=== PATIENT | female | born 1940 | race Caucasian/White ===

== ENCOUNTER 2017-07-05 10:33 | Outpatient (CLI) | payer MEDICARE, OTHER ==
--- NOTE | 2017-07-05 12:37 | XRAY Report ---
TWO VIEW CHEST: 07/05/2017 COMPARISON: Chest radiographs 10/11/2008. INDICATION: Shortness of breath. TECHNIQUE: Two views. FINDINGS: There are stable postoperative changes of the left thorax with volume loss. There is a new airspace consolidation of the right lower lobe. No pneumothorax. Mediastinum appears stable. IMPRESSION: RIGHT LOWER LOBE CONSOLIDATION IS CONCERNING FOR PNEUMONIA IN THE CORRECT CLINICAL SETTING. FOLLOW UP IS RECOMMENDED. TD: 07/05/2017 12:37 [facility]
== END 2017-07-05 10:34 | disposition home or self-care (01) ==
LOC: DI.N 10:33
PROVIDERS: ATTEND Nurse Practitioner Family
DX: R91.8 Other nonspecific abnormal finding of lung field (principal)
CPT/HCPCS: 71046

== ENCOUNTER 2023-09-05 11:05 | Outpatient (CLI) | payer MEDICARE, OTHER | END 2023-09-05 22:46 | disposition short-term general hospital (02) | LOC: EMS 11:05 | DX: M25.552 Pain in left hip (principal); W01.0XXA Fall on same level from slipping, tripping and stumbling without subsequent striking against object, initial encounter; Y92.008 Other place in unspecified non-institutional (private) residence as the place of occurrence of the external cause; Z79.01 Long term (current) use of anticoagulants | CPT/HCPCS: A0425; A0429 ==

== ENCOUNTER 2023-09-25 13:38 | Outpatient (CLI) | payer MEDICARE, OTHER | END 2023-09-25 23:59 | disposition short-term general hospital (02) | LOC: EMS 13:38 | DX: M25.552 Pain in left hip (principal); M79.605 Pain in left leg | CPT/HCPCS: A0425; A0429; A0888 ==